=== PATIENT | male | born 1955 | race Caucasian/White ===

== ENCOUNTER 2021-07-01 13:30 | Emergency (ER) | payer MEDICARE, MEDICAID ==
[~2021-07-01] VITALS: Ht 172.7 cm; Wt 63.5 kg
--- NOTE | 2021-07-01 13:38 | NUR ---
Dr Gustafson at the bedside
--- NOTE | 2021-07-01 13:42 | NUR ---
The patient bibra for c/o "Mouth sores-bleeding/oozing". No bleeding at this time. Denies pain. Will continue to monitor the patient.
[2021-07-01] MEDS ORDERED: AMOX-427 PO (13:43)
[2021-07-01 13:51] VITALS: BP 124/76
--- NOTE | 2021-07-01 13:51 | NUR ---
Patient discharged to home in stable condition. Written and verbal after care instructions given. Patient verbalizes understanding of instruction.
== END 2021-07-01 13:52 | disposition home or self-care (01) ==
LOC: ER 13:40
DX: K12.2 Cellulitis and abscess of mouth (principal); I10 Essential (primary) hypertension; Z59.00 Homelessness unspecified